=== PATIENT | male | born 1940 | race Caucasian/White ===

== ENCOUNTER 2023-08-01 14:00 | Outpatient (RCR) | payer MEDICARE, OTHER, SELFPAY ==
[2023-07-26 15:03] LABS: Glucose - Point of Care 155 mg/dl (70-99)
[2023-07-26 15:50] LABS: Glucose - Point of Care 155 mg/dl (70-99)
[2023-07-29 14:49] LABS: Glucose - Point of Care 184 mg/dl (70-99)
[2023-07-29 15:35] LABS: Glucose - Point of Care 121 mg/dl (70-99)
[2023-08-01 15:03] LABS: Glucose - Point of Care 236 mg/dl (70-99)
[2023-08-01 15:39] LABS: Glucose - Point of Care 183 mg/dl (70-99)
== END 2023-08-01 23:59 | disposition home or self-care (01) ==
LOC: CRHB 14:00
PROVIDERS: ATTENDING PHYSICIAN Internal Medicine Cardiovascular Disease
DX: I25.10 Atherosclerotic heart disease of native coronary artery without angina pectoris (principal); Z95.1 Presence of aortocoronary bypass graft; I25.5 Ischemic cardiomyopathy
CPT/HCPCS: 82962; G0422; G0423

== ENCOUNTER 2023-08-31 15:34 | Outpatient (RCR) | payer MEDICARE, OTHER, SELFPAY ==
[2023-08-05 14:48] LABS: Glucose - Point of Care 181 mg/dl (70-99)
[2023-08-05 15:31] LABS: Glucose - Point of Care 136 mg/dl (70-99)
[2023-08-08 15:22] LABS: Glucose - Point of Care 148 mg/dl (70-99)
[2023-08-08 16:10] LABS: Glucose - Point of Care 95 mg/dl (70-99)
[2023-08-10 14:47] LABS: Glucose - Point of Care 334 mg/dl (70-99)
[2023-08-12 15:08] LABS: Glucose - Point of Care 164 mg/dl (70-99)
[2023-08-12 15:59] LABS: Glucose - Point of Care 131 mg/dl (70-99)
[2023-08-15 15:07] LABS: Glucose - Point of Care 188 mg/dl (70-99)
[2023-08-15 15:53] LABS: Glucose - Point of Care 164 mg/dl (70-99)
[2023-08-17 14:42] LABS: Glucose - Point of Care 149 mg/dl (70-99)
[2023-08-17 15:42] LABS: Glucose - Point of Care 102 mg/dl (70-99)
[2023-08-19 14:42] LABS: Glucose - Point of Care 132 mg/dl (70-99)
[2023-08-19 15:41] LABS: Glucose - Point of Care 104 mg/dl (70-99)
[2023-08-22 09:25] LABS: Glucose - Point of Care 223 mg/dl (70-99)
[2023-08-22 10:29] LABS: Glucose - Point of Care 180 mg/dl (70-99)
[2023-08-24 14:38] LABS: Glucose - Point of Care 151 mg/dl (70-99)
[2023-08-24 15:31] LABS: Glucose - Point of Care 126 mg/dl (70-99)
== END 2023-08-31 23:59 | disposition home or self-care (01) ==
LOC: CRHB 15:34
PROVIDERS: ATTENDING PHYSICIAN Internal Medicine Cardiovascular Disease; FAMILY PHYSICIAN Family Medicine
DX: I25.10 Atherosclerotic heart disease of native coronary artery without angina pectoris (principal); Z95.1 Presence of aortocoronary bypass graft; I25.5 Ischemic cardiomyopathy
CPT/HCPCS: 82962; G0422; G0423

== ENCOUNTER 2023-09-30 14:59 | Outpatient (RCR) | payer MEDICARE, OTHER, SELFPAY | END 2023-09-30 23:59 | disposition home or self-care (01) | LOC: CRHB 14:59 | PROVIDERS: ATTENDING PHYSICIAN Internal Medicine Cardiovascular Disease | DX: Z95.5 Presence of coronary angioplasty implant and graft (principal); Z95.1 Presence of aortocoronary bypass graft (principal); I25.5 Ischemic cardiomyopathy; I25.10 Atherosclerotic heart disease of native coronary artery without angina pectoris | CPT/HCPCS: G0422; G0423 ==

== ENCOUNTER 2023-10-19 13:00 | Outpatient (RCR) | payer MEDICARE, OTHER, SELFPAY | END 2023-10-19 23:59 | disposition home or self-care (01) | LOC: CRHB 13:00 | PROVIDERS: ATTENDING PHYSICIAN Internal Medicine Cardiovascular Disease; FAMILY PHYSICIAN Family Medicine | DX: I25.10 Atherosclerotic heart disease of native coronary artery without angina pectoris (principal); Z95.1 Presence of aortocoronary bypass graft | CPT/HCPCS: G0422; G0423 ==

== ENCOUNTER → 2024-08-23 13:47 | Outpatient (REF) | payer MEDICARE, OTHER, SELFPAY | LOC: MRI 13:47 | PROVIDERS: ATTENDING PHYSICIAN Psychiatry & Neurology Vascular Neurology | DX: G31.84 Mild cognitive impairment of uncertain or unknown etiology (principal) | CPT/HCPCS: 70551 ==

== ENCOUNTER → 2025-03-13 14:02 | Outpatient (REF) | payer MEDICARE, OTHER, SELFPAY | LOC: RAD 14:02 | PROVIDERS: FAMILY PHYSICIAN Family Medicine | DX: D48.5 Neoplasm of uncertain behavior of skin (principal) | CPT/HCPCS: 70491; Q9967 ==

== ENCOUNTER → 2025-03-21 10:23 | Outpatient (REF) | payer MEDICARE, OTHER, SELFPAY ==
[2025-03-21 10:40] LABS: Glucose 157 mg/dl (70-99)
== END ==
LOC: PET 10:23
PROVIDERS: ATTENDING PHYSICIAN Otolaryngology
DX: C44.92 Squamous cell carcinoma of skin, unspecified (principal); C77.0 Secondary and unspecified malignant neoplasm of lymph nodes of head, face and neck; Z01.818 Encounter for other preprocedural examination
CPT/HCPCS: 36415; 82947

== ENCOUNTER → 2025-05-22 09:48 | Outpatient (REF) | payer MEDICARE, OTHER, SELFPAY | LOC: RST 09:48 | PROVIDERS: ATTENDING PHYSICIAN Radiology Radiation Oncology; FAMILY PHYSICIAN Family Medicine | DX: C44.222 Squamous cell carcinoma of skin of right ear and external auricular canal (principal); R13.10 Dysphagia, unspecified | CPT/HCPCS: 74230; 92611 ==

== ENCOUNTER 2025-06-24 14:23 | Outpatient (RCR) | payer MEDICARE, OTHER, SELFPAY | END 2025-06-24 23:59 | disposition home or self-care (01) | LOC: RST 14:23 | PROVIDERS: ATTENDING PHYSICIAN Radiology Radiation Oncology; FAMILY PHYSICIAN Family Medicine | DX: C44.222 Squamous cell carcinoma of skin of right ear and external auricular canal (principal); R13.12 Dysphagia, oropharyngeal phase; R47.89 Other speech disturbances; R13.13 Dysphagia, pharyngeal phase; Z98.890 Other specified postprocedural states | CPT/HCPCS: 92507; 92522; 92526; 92610 ==